=== PATIENT | female | born 1990 | race African-American/Black ===

== ENCOUNTER 2017-09-06 08:20 | Emergency (ER) | payer BC ==
[~2017-09-06] VITALS: Ht 152.4 cm; Wt 104.3 kg
[~2017-09-06 08:20] MED LIST: LEXAPRO 10 MG T10 M2 PO
[2017-09-06 08:21] VITALS: BP 148/98
== END 2017-09-06 08:40 | disposition home or self-care (01) ==
LOC: ER 08:20
DX: S01.411D Laceration without foreign body of right cheek and temporomandibular area, subsequent encounter (principal); W01.198D Fall on same level from slipping, tripping and stumbling with subsequent striking against other object, subsequent encounter